=== PATIENT | female | born 1985 | race Caucasian/White ===

== ENCOUNTER → 2016-12-05 | Outpatient (CLI) | payer OTHER ==
[~2016-12-05] MED LIST: ALBU1AER9; CETI10TA84 PO; FERR325T51; PRENTAB26 PO
[2016-12-12 06:12] LABS: EGG MIX CLASS 0; EGG MIX IGE <0.10 KU/L
== END | disposition home or self-care (01) ==
LOC: C.LAB1850 13:02
PROVIDERS: ATTEND Internal Medicine Pulmonary Disease
DX: J30.1 Allergic rhinitis due to pollen (principal); T78.1XXA Other adverse food reactions, not elsewhere classified, initial encounter; J30.81 Allergic rhinitis due to animal (cat) (dog) hair and dander; J30.89 Other allergic rhinitis; X58.XXXA Exposure to other specified factors, initial encounter